=== PATIENT | female | born 1945 | race Caucasian/White ===

== ENCOUNTER 2019-01-01 13:18 | Emergency (ER) | payer MEDICARE ==
[~2019-01-01] VITALS: Ht 160 cm; Wt 64.9 kg
[2019-01-01] MEDS ORDERED: PREMARIN0.625 MG PO (13:37)
[2019-01-01] MEDS ORDERED: ALTACE10 MG PO (13:37)
[2019-01-01 14:24] VITALS: BP 149/73
== END 2019-01-01 14:26 | disposition home or self-care (01) ==
LOC: M.ERS 13:18
DX: S00.12XA Contusion of left eyelid and periocular area, initial encounter (principal); S00.11XA Contusion of right eyelid and periocular area, initial encounter; S00.83XA Contusion of other part of head, initial encounter; I10 Essential (primary) hypertension; Z90.710 Acquired absence of both cervix and uterus; Z88.0 Allergy status to penicillin; Z88.8 Allergy status to other drugs, medicaments and biological substances; Z96.649 Presence of unspecified artificial hip joint; W18.39XA Other fall on same level, initial encounter; Y93.89 Activity, other specified; Y92.89 Other specified places as the place of occurrence of the external cause; Y99.8 Other external cause status